=== PATIENT | male | born 1945 | race African-American/Black ===

== ENCOUNTER → 2017-04-03 | Outpatient (CLI) | payer BC ==
[~2017-04-03] VITALS: Ht 170.2 cm; Wt 87.1 kg
[~2017-04-03] MED LIST: REGADENOSON 0.4 MG/5 ML DISP.SYRIN. IV ONE
--- NOTE | 2017-04-03 15:06 | RAD ---
APPROVED REPORT Test Type: Pharmacological Stress Nurse/Tech: Karo Hdz R.N. Test Indications: dyspnea Cardiac History: HTN, recent x-smoker Medications: See Electronic Medical Record Medical History: See Electronic Medical Record Resting ECG: SR w/pvc's Resting Heart Rate: 80 bpm Resting Blood Pressure: 114/58mmHg Pretest Chest Pain: No chest pain Nurse/Tech Notes S1S2, lungs CTA Consent: The procedure was explained to the patient in lay terms. Informed consent was witnessed. Min eout was entered into [employer]. History and Stress Test performed by RT Joi (Bernadette) (N) Pharm. Details Pharmacologic stress testing was performed using 0.4mg per 5ml of regadenoson given intravenously ove r 7-10 seconds. Stress Symptoms dyspnea w/ chest tightness scale 7/10 (lasted only 1-2 minutes) POST EXERCISE Reason for Termination: Infusion complete Max HR: 123 bpm Max Blood Pressure: 149/76mmHg Blood Pressure response to exercise: Normal blood pressure response during stress. Heart Rate response to exercise: wnl Chest Pain: Yes. see above note Arrhythmia: Yes. pt had increased pvc's with 3 runs of 4 beats of v-tach during the first 2 minutes a fter lexiscan, he also had runs of bigeminy ST Change: No. INTERPRETATION Stress EKG Conclusion: Baseline EKG showed sinus rhythm with PVC's. No ischemic changes at peak stre ss. Frequent PVC's without any other arrhythmias. Rest: Stress: Viability: Radiopharm.Tc99m JztojrggjXv50d Sestamibi Hsrm17cOt 33mCi Duration 12min. 8min. Img Date 04/03/2017 04/03/2017 Inj-Img Ygso63kku. 60min. Rest Admin Site:IV - Right ForearmAdministrator:RT Kalee Tamez)(N) Stress Admin Site: IV - Right ForearmAdministrator: RT Joi (Bernadette)(N) STRESS DATA End Diast. Vol.54.0mlAv. Heart Rate95.0bpm End Syst. Vol.7.0mlCO Index BSA4.5L/min Myocardial Thea665.0gEject. Lucpblgm26.0% Stress Rates Pk. Fill Rate4.83EDV/secLVtime Pk. Fill 161.50msec Pk. Empty Rate6.91ESV/secLVtime Pk. Ltzua985.48msec 10/29 Pk. Fill1.11EDV/sec Stress Scores Regional WT2.00Summed WT12.00 Regional WM0.00Summed WM1.00 Study quality was good. Left Ventricular size was Normal at Rest and Stress. Lung uptake was Normal. Left Ventricular ejection fraction is 87%. The rest and stress images show normal perfusion, normal contraction and thickening. LV Perf. Quant 17 Seg. SSS1.00 17 Seg. SRS0.00 17 Seg. SDS1.00 Stress Defect Extent (% LAD)0.00Rest Defect Extent (% LAD)0.00Rev. Defect Extent (% LAD)0.00 Stress Defect Extent (% LCX) 10.00Rest Defect Extent (% LCX)0.00Rev. Defect Extent (% LCX)6.30 Stress Defect Extent (% RCA)0.00Rest Defect Extent (% RCA)0.00Rev. Defect Extent (% RCA)0.00 Stress Defect Extent (% YANE)1.70Rest Defect Extent (% YANE)0.00Rev. Defect Extent (% YANE)1.10 Conclusion 1. Regadenoson cardioisotope stress test did not show any evidence of ischemia or infarct. 2. Normal left ventricular systolic function with ejection fraction calculated at 87%. 3. Low risk for cardiac events.
--- NOTE | 2017-04-03 15:11 | CARD ---
APPROVED REPORT EXAM: Two-dimensional and M-mode echocardiogram with Doppler and color Doppler. Other Information Quality : Average Rhythm : NSR INDICATION Dyspnea 2D DIMENSIONS RVDd3.8 (2.9-3.5cm)Left Atrium(2D)3.5 (1.6-4.0cm) IVSd0.8 (0.7-1.1cm)Aortic Root(2D)2.8 (2.0-3.7cm) LVDd4.0 (3.9-5.9cm)LVOT Diameter2.0 (1.8-2.4cm) PWd0.9 (0.7-1.1cm)LVDs2.8 (2.5-4.0cm) FS (%) 29.6 %SV39.3 ml LVEF(%)57.2 (>50%) Aortic Valve AoV Peak Carlos Alberto.130.0cm/sAoV VTI21.9cm AO Peak GR.6.8mmHgLVOT Peak Carlos Alberto.118.1cm/s LVOT VTI 20.79cmAO Mean GR.4mmHg SYEDA (VMAX)2.92vs7BTA (VTI)3.10cm2 Mitral Valve MV E Fgyrlptk88.6cm/sMV DECEL [id number] MV A Epselnyh621.8cm/sMV CID26cd E/A Ratio0.7MV A Hycfvflp52zi MVA (PHT)3.81cm2 TDI E/Lateral E'10.8E/Medial E'11.4 Pulmonary Valve PV Peak Dstxbviy100.3cm/sPV Peak Grad.4mmHg RVOT VTI17.5cm Tricuspid Valve TR P. Odynguos968bb/sRAP ITJVVALZ1hqUo TR Peak Gr.26zwRxBPCY51oqDn LEFT VENTRICLE The left ventricle is normal size. There is normal left ventricular wall thickness. Left ventricle sy stolic function is normal. The Ejection Fraction is 55-60%. There is normal LV segmental wall motion. Tissue Doppler imaging reveals mild left ventricular diastolic dysfunction. Transmitral Doppler flow pattern is Grade I-abnormal relaxation pattern. There is no ventricular septal defect visualized. RIGHT VENTRICLE The right ventricle is normal size. The right ventricular systolic function is normal. ATRIA The left atrium size is normal. The right atrium size is normal. The interatrial septum is intact wit h no evidence for an atrial septal defect or patent foramen ovale as noted on 2-D or Doppler imaging. AORTIC VALVE The aortic valve is normal in structure and function. The aortic valve is trileaflet. Doppler and Col or Flow revealed no significant aortic regurgitation. There is no significant aortic valvular stenosi s. MITRAL VALVE The mitral valve is normal in structure and function. There is no mitral valve stenosis. Doppler and Color Flow revealed no mitral valve regurgitation noted. TRICUSPID VALVE The tricuspid valve is normal in structure and function. Doppler and Color Flow revealed trace to mil d tricuspid regurgitation. The PA pressure was estimated at 26 mmHg. There is no tricuspid valve sten osis. PULMONIC VALVE The pulmonic valve is not well visualized. Doppler and Color Flow revealed no pulmonic valvular regur gitation. There is no pulmonic valvular stenosis. GREAT VESSELS The aortic root is normal in size. Normal pulmonary venous flow (Doppler). The IVC is normal in size and collapses >50% with inspiration. PERICARDIAL EFFUSION There is no evidence of significant pericardial effusion. Critical Notification Critical Value: No <Conclusion> Left ventricle systolic function is normal. The Ejection Fraction is 55-60%. There is normal LV segmental wall motion. Transmitral Doppler flow pattern is Grade I-abnormal relaxation pattern. Trace to mild tricuspid regurgitation. The PA pressure was estimated at 26 mmHg. There is no evidence of significant pericardial effusion.
== END | disposition home or self-care (01) ==
LOC: NM 15:00
PROVIDERS: ATTEND Internal Medicine Pulmonary Disease
DX: R06.02 Shortness of breath (principal)
CPT/HCPCS: 78452; 93017; 93306; 96374; 96375; 96376; A9500; J2785

== ENCOUNTER → 2017-05-05 | Outpatient (CLI) | payer BC ==
[~2017-05-05] MED LIST changes: -REGADENOSON 0.4 MG/5 ML DISP.SYRIN. IV ONE; +ZOLPIDEM 5 MG TABLET. PO ONE
--- NOTE | 2017-05-06 14:05 | PDOC4 ---
PROCEDURE Procedure Polysomnography report Referring physician; Dr. Elio Lang Date of study; 05/05/2017 Iban is 71 years old who weighs 192 pounds with a BMI of 30. Patient's [place] score was 13 suggesting moderate subjective hypersomnia. Sleep study was performed at [facility] to rule out MARIA LUISA. This was a diagnostic study. During the night's study patient had 1 obstructive apnea, 3 mixed apneas and no central apneas. Her were 11 hypopneas.Patients AHI for the entire night was only 3 per hour with a supine AHI of 3 per hour and a REM AHI of 4 per hour. EKG monitoring revealed normal sinus rhythm average heart rate was 80 bpm no arrhythmias were observed Review of nocturnal oximetry study revealed a mean oxygen saturation of 96% with a lowest of 81%. 11% of the time oxygen saturation remained less than 89%. Periodic limb movements were seen at an index of 4 per hour and 1 per hour caused EEG arousals. Due to low AHI patient did not met the split night criteria for CPAP initiation. Impression 1. No clinically significant sleep apnea hypopnea syndrome. Patient's AHI for the entire night was only 3 per hour 2. Mild nocturnal hypoxia which was predominantly seen during REM sleep and is related to REM related hypopneas. 3. No clinically significant PLM Recommendation 1. Patient did not met the criteria for CPAP initiation. 2. Weight loss is advised. 3. Avoid central nervous system depressants 4. Patient has moderate subjective hypersomnia. Consider other etiologies of hypersomnia such as narcolepsy or idiopathic hypersomnia. If clinically indicated multiple sleep latency test can be performed to rule out these possibilities. 5. Cautioned regarding driving until patient's hypersomnia is resolved with above recommendations SHO VOSS MD May 06, 2017 14:05
== END | disposition home or self-care (01) ==
LOC: SLPLAB 18:31
PROVIDERS: ATTEND Internal Medicine Pulmonary Disease
DX: G47.33 Obstructive sleep apnea (adult) (pediatric) (principal)
CPT/HCPCS: 95810

== ENCOUNTER → 2018-02-05 | Outpatient (CLI) | payer BC ==
[2018-02-05] MEDS: REGADENOSON 0.4 MG/5 ML DISP.SYRIN. IV (09:30)
== END | disposition home or self-care (01) ==
LOC: NM 08:32
DX: R55 Syncope and collapse (principal); I10 Essential (primary) hypertension; E11.9 Type 2 diabetes mellitus without complications; E78.00 Pure hypercholesterolemia, unspecified
CPT/HCPCS: 78452; 93017; 96374; 96375; 96376; A9537; J2785

== ENCOUNTER → 2019-08-20 | Day surgery (SDC) | payer BC ==
[~2019-08-20] MED LIST changes: +ATOR40TA59 PO; +CHLO25TA10 PO; +EMPA25TA PO; +LIDOCAINE 2% PF 5 ML VIAL. ONE; +METF10007 PO; +PROPOFOL 20 ML IV ONE; +SITA100T PO; -ZOLPIDEM 5 MG TABLET. PO ONE; +[UNRECOGNIZED DRUG - CODE] PO
[2019-08-20] MEDS: IV RINGERS,LACTATED 1000ML 1,000 ML IV SCH ×2 (09:02→09:03)
[2019-08-20 11:00] VITALS: BP 112/58
--- NOTE | 2019-08-20 11:13 | CONS ---
DATE OF CONSULTATION: 08/20/2019 GI CONSULTATION REFERRING PHYSICIAN: Margarita Jacob MD REASON FOR CONSULTATION: History of colonic polyps. HISTORY OF PRESENT ILLNESS: A 74-year-old -[place] male with past medical history significant for hypertension, diabetes, hyperlipidemia as well as some osteoarthrosis, status post right below-knee amputation with prosthesis, is seen for interval colon exam. Last exam was approximately 6 years ago, did have polyps at that time. Bowel habits have been regular without diarrhea or constipation. There has been no melena or hematochezia. Weight and appetite are stable. Family history is unrevealing for colon cancer. He is otherwise without additional complaints. PAST MEDICAL HISTORY: Diabetes, hypertension, hyperlipidemia, osteoarthrosis. ALLERGIES: PENICILLIN. MEDICATIONS: Include amlodipine, valsartan, hydrochlorothiazide, atorvastatin, chlorthalidone, Jardiance, metformin and Januvia. SOCIAL HISTORY: He is a former drinker and smoker. FAMILY HISTORY: Significant for breast cancer with his mother, high blood pressure with his father and grandfather. PAST SURGICAL HISTORY: History of right below-knee amputation. REVIEW OF SYSTEMS: HEENT: There is no decrease in visual acuity issues. CARDIAC: History of hypertension. PULMONARY: No shortness breath, productive cough or asthma. RENAL: No dysuria, frequency, hematuria. ENDOCRINE: History of diabetes. DERMATOLOGIC: No skin rashes or pruritus. MUSCULOSKELETAL: History of right BKA. GASTROINTESTINAL: See history of present illness. HEMATOLOGIC: No bleeding, bruising, coagulopathy. PHYSICAL EXAMINATION: GENERAL: Reveals a well-nourished, well-developed -[place] male who is alert, cooperative, in no acute distress. VITAL SIGNS: Temperature 97.8, pulse 88, respirations 20. HEENT: Normocephalic, atraumatic head. Pupils and extraocular muscles are not tested. Sclerae anicteric. NECK: Supple. LUNGS: Clear. CARDIOVASCULAR: Reveals an S1, S2 without S3, S4 or appreciable murmur. ABDOMEN: Reveals a soft abdomen, normal bowel sounds, without appreciable hepatosplenomegaly. EXTREMITIES: Reveals right BKA. IMPRESSION: History of colonic polyps. Surveillance exam is recommended at this time. Risks and benefits of procedure including risk of hemorrhage and perforation requiring operation have been discussed. He is willing to proceed. I would like to thank Dr. Kumar for allowing us to consult and participate in the patient's care ____. KING HUBBARD MD DR: Betsey JOB#: [id number] / [id number]
== END ==
LOC: ENDOS 08:18
PROVIDERS: ATTEND Internal Medicine Gastroenterology
DX: Z12.11 Encounter for screening for malignant neoplasm of colon (principal); K57.30 Diverticulosis of large intestine without perforation or abscess without bleeding; K64.0 First degree hemorrhoids; E11.9 Type 2 diabetes mellitus without complications; E78.5 Hyperlipidemia, unspecified; M19.90 Unspecified osteoarthritis, unspecified site; F10.21 Alcohol dependence, in remission; E78.00 Pure hypercholesterolemia, unspecified; I11.9 Hypertensive heart disease without heart failure; J43.9 Emphysema, unspecified; K21.9 Gastro-esophageal reflux disease without esophagitis; Z98.890 Other specified postprocedural states; Z86.010 Personal history of colon polyps; Z88.0 Allergy status to penicillin; Z87.891 Personal history of nicotine dependence; Z89.511 Acquired absence of right leg below knee; Z79.84 Long term (current) use of oral hypoglycemic drugs
CPT/HCPCS: 45378; 82962; J2001; J2704